=== PATIENT | female | born 1965 | race Caucasian/White ===

== ENCOUNTER 2017-03-15 12:04 | Inpatient (IN) | payer OTHER ==
[~2017-03-15] VITALS: Ht 162.6 cm; Wt 78.0 kg
[2017-03-15 13:14] LABS: BASOPHIL % 0.8 % (0-2); PLATELET COUNT 195 x10^3mcL (130-400); RED CELL DISTRIBUTION WIDTH 12.6 % (11.5-14.5)
[2017-03-15 13:23] LABS: CALCIUM 8.8 mg/dL (8.5-10.1); CARBON DIOXIDE 27.5 mmol/L (21-32); CHLORIDE SERUM 103 mmol/L (98-107); CREATININE SERUM 0.6 mg/dL (0.6-1.0); GFR1 > 60 mL/min; GLUCOSE SERUM 315 mg/dL (74-106); POTASSIUM SERUM 4.4 mmol/L (3.5-5.1); SODIUM SERUM 135 mmol/L (136-145)
[2017-03-15 13:27] LABS: ALBUMIN 3.5 g/dL (3.4-5.0); ALKALINE PHOSPHATASE 202 U/L (46-116); ALT/SGPT 476 U/L (14-59); AST/SGOT 155 U/L (15-37); BILIRUBIN TOTAL 1.72 mg/dL (0.20-1.00); LIPASE 471 IU/L (73-393); TOTAL PROTEIN, SERUM 6.7 g/dL (6.4-8.2)
[2017-03-15] MEDS ORDERED: GLU850 PO (15:15)
[2017-03-15 16:13] VITALS: BP 148/75
[2017-03-15 16:15] LABS: FREE T4 0.75 ng/dL (0.76-1.46); FREE THYROXINE INDEX 2.3 ug/dL (1.4-4.5); T3 TOTAL 0.8 ng/mL; T4(THYROXINE) 6.5 ug/dL (4.7-13.3)
[2017-03-15 18:37] LABS: microscopic required? YES; urine erythrocyte NEGATIVE (NEGATIVE)
[2017-03-15 18:51] LABS: AMPHETAMINE QUAL UR NONE DETECTED (NEG <=1000)
[2017-03-15 21:39] VITALS: BP 93/56
[2017-03-16 05:38] VITALS: BP 101/66
[2017-03-16 05:58] LABS: BASOPHIL % 0.6 % (0-2); PLATELET COUNT 185 x10^3mcL (130-400); RED CELL DISTRIBUTION WIDTH 12.9 % (11.5-14.5)
[2017-03-16 06:38] LABS: CALCIUM 8.7 mg/dL (8.5-10.1); CARBON DIOXIDE 26.8 mmol/L (21-32); CHLORIDE SERUM 110 mmol/L (98-107); CREATININE SERUM 0.6 mg/dL (0.6-1.0); GFR1 > 60 mL/min; GLUCOSE SERUM 181 mg/dL (74-106); MAGNESIUM 1.8 mg/dL (1.8-2.4); PHOSPHOROUS 4.6 mg/dL (2.5-4.9); POTASSIUM SERUM 4.5 mmol/L (3.5-5.1); SODIUM SERUM 145 mmol/L (136-145)
[2017-03-16 08:26] LABS: BILIRUBIN DIRECT 0.51 mg/dL (0.0-0.2); BILIRUBIN TOTAL 1.2 mg/dL (0.20-1.00)
[2017-03-16 08:27] LABS: ALBUMIN 3.1 g/dL (3.4-5.0); TOTAL PROTEIN, SERUM 5.6 g/dL (6.4-8.2)
[2017-03-16 09:40] VITALS: BP 107/60
[2017-03-16 12:05] VITALS: BP 126/70
[2017-03-16 17:08] VITALS: BP 111/61
[2017-03-16 19:53] VITALS: BP 140/66
[2017-03-16 22:14] VITALS: BP 113/62
[2017-03-17 06:12] LABS: BASOPHIL % 0.4 % (0-2); PLATELET COUNT 210 x10^3mcL (130-400); RED CELL DISTRIBUTION WIDTH 13.1 % (11.5-14.5)
[2017-03-17 06:25] VITALS: BP 100/55
[2017-03-17 06:27] LABS: CALCIUM 9.2 mg/dL (8.5-10.1); CARBON DIOXIDE 29.4 mmol/L (21-32); CHLORIDE SERUM 107 mmol/L (98-107); CREATININE SERUM 0.6 mg/dL (0.6-1.0); GFR1 > 60 mL/min; GLUCOSE SERUM 171 mg/dL (74-106); MAGNESIUM 1.9 mg/dL (1.8-2.4); PHOSPHOROUS 4.8 mg/dL (2.5-4.9); POTASSIUM SERUM 3.9 mmol/L (3.5-5.1); SODIUM SERUM 142 mmol/L (136-145)
[2017-03-17 11:50] VITALS: BP 123/71
[2017-03-17 18:05] VITALS: BP 91/67
[2017-03-17 21:35] VITALS: BP 100/56
[2017-03-18 06:23] LABS: BASOPHIL % 0.3 % (0-2); PLATELET COUNT 180 x10^3mcL (130-400); RED CELL DISTRIBUTION WIDTH 12.1 % (11.5-14.5)
[2017-03-18 06:30] LABS: CALCIUM 8.5 mg/dL (8.5-10.1); CARBON DIOXIDE 28.1 mmol/L (21-32); CHLORIDE SERUM 107 mmol/L (98-107); CREATININE SERUM 0.5 mg/dL (0.6-1.0); GFR1 > 60 mL/min; GLUCOSE SERUM 180 mg/dL (74-106); MAGNESIUM 1.8 mg/dL (1.8-2.4); PHOSPHOROUS 4.6 mg/dL (2.5-4.9); POTASSIUM SERUM 3.7 mmol/L (3.5-5.1); SODIUM SERUM 143 mmol/L (136-145)
[2017-03-18 10:25] VITALS: BP 103/60
[2017-03-18] MEDS ORDERED: GLU500 PO (12:14)
[2017-03-18] MEDS ORDERED: LAC PO (12:19)
[2017-03-18] MEDS ORDERED: AUG500 PO (12:19)
[2017-03-18] MEDS ORDERED: COL100 PO (12:24)
[2017-03-18] MEDS ORDERED: LEVEMIR100 U/M1 SC (12:27)
[2017-03-18] MEDS ORDERED: APAP/HYDROCODON1 T13 PO (12:28)
[2017-03-18] MEDS ORDERED: TEST STRIPS1 EACH MC (12:32)
[2017-03-18] MEDS ORDERED: INSULIN SYRING1 EA10 MC (12:39)
[2017-03-18] MEDS ORDERED: NEEDLES1 EAC1 MC (12:42)
[2017-03-18] MEDS ORDERED: BLOOD LANCETS1 EACH MC (12:48)
[2017-03-18 13:20] VITALS: BP 113/66
[2017-03-18 14:00] VITALS: BP 113/66
== END 2017-03-18 15:30 | disposition home or self-care (01) | DRG 263 ==
LOC: ED 12:04 → DU 15:37 → MU 15:37 → DU 16:28 → MU 03-17 12:31
PROVIDERS: Emergency Medicine; Family Medicine; Internal Medicine Gastroenterology; ADMIT Family Medicine
PROC: 0FT44ZZ Resection of Gallbladder, Percutaneous Endoscopic Approach (ICD-10-PCS; principal; 2017-03-16 10:00)
PROC: 0F798ZZ Dilation of Common Bile Duct, Via Natural or Artificial Opening Endoscopic (ICD-10-PCS; principal; 2017-03-16 10:00)
PROC: BF10YZZ Fluoroscopy of Bile Ducts using Other Contrast (ICD-10-PCS; 2017-03-16 10:00)
DX: K80.42 Calculus of bile duct with acute cholecystitis without obstruction (principal); D68.69 Other thrombophilia; E44.0 Moderate protein-calorie malnutrition; E87.1 Hypo-osmolality and hyponatremia; E11.65 Type 2 diabetes mellitus with hyperglycemia; N39.0 Urinary tract infection, site not specified; Z79.84 Long term (current) use of oral hypoglycemic drugs
CPT/HCPCS: 43262; 80307; 82962; 83880; 84439; 94150; C1769; J0696; J1815; J1885; J2175; J2250; J2270; J2405; J2765; J3010; J3490; J7030; J7120; Q0092; Q9967

== ENCOUNTER 2017-04-22 08:58 | Emergency (ER) | payer OTHER ==
[~2017-04-22] VITALS: Ht 162.6 cm; Wt 74.4 kg
[~2017-04-22 08:58] MED LIST: APAP/HYDROCODON1 T13 PO; AUG500 PO; BLOOD LANCETS1 EACH MC; COL100 PO; GLU500 PO; GLU850 PO; INSULIN SYRING1 EA10 MC; LAC PO; LEVEMIR100 U/M1 SC; NEEDLES1 EAC1 MC; TEST STRIPS1 EACH MC
[2017-04-22 09:13] VITALS: BP 120/62
== END 2017-04-22 10:16 | disposition home or self-care (01) ==
LOC: ED 08:58
DX: J20.9 Acute bronchitis, unspecified (principal); E11.9 Type 2 diabetes mellitus without complications
CPT/HCPCS: J7613; J7644; Q0092

== ENCOUNTER 2017-11-19 14:00 | Emergency (ER) | payer OTHER ==
[2017-11-19 14:57] VITALS: BP 128/76
== END 2017-11-19 18:08 | disposition home or self-care (01) ==
LOC: ED 14:00
DX: R05 Cough (principal); E11.9 Type 2 diabetes mellitus without complications

== ENCOUNTER 2019-11-26 07:49 | Emergency (ER) | payer OTHER ==
[~2019-11-26] VITALS: Ht 165.1 cm; Wt 77.6 kg
[2019-11-26 08:06] VITALS: Ht 165.1 cm; Wt 77.6 kg
[2019-11-26 08:21] LABS: BASOPHIL % 0.5 % (0-2); PLATELET COUNT 222 x10^3mcL (130-400); RED CELL DISTRIBUTION WIDTH 12.1 % (11.5-14.5)
[2019-11-26 08:34] LABS: CALCIUM 9.3 mg/dL (8.5-10.1); CARBON DIOXIDE 27.4 mmol/L (21-32); CHLORIDE SERUM 101 mmol/L (98-107); CREATININE SERUM 0.7 mg/dL (0.6-1.0); GFR1 > 60 mL/min; GLUCOSE SERUM 326 mg/dL (74-106); POTASSIUM SERUM 4.2 mmol/L (3.5-5.1); SODIUM SERUM 136 mmol/L (136-145)
[2019-11-26 08:40] LABS: ALBUMIN 3.8 g/dL (3.4-5.0); ALKALINE PHOSPHATASE 98 U/L (46-116); ALT/SGPT 30 U/L (14-59); AST/SGOT 11 U/L (15-37); BILIRUBIN TOTAL 0.6 mg/dL (0.20-1.00); TOTAL PROTEIN, SERUM 7.6 g/dL (6.4-8.2)
[2019-11-26 09:53] VITALS: BP 129/78
== END 2019-11-26 11:39 | disposition home or self-care (01) ==
LOC: ED 07:49
DX: N76.0 Acute vaginitis (principal); E11.9 Type 2 diabetes mellitus without complications; Z87.19 Personal history of other diseases of the digestive system
CPT/HCPCS: 36415

== ENCOUNTER 2020-07-31 09:04 | Emergency (ER) | payer OTHER ==
[~2020-07-31] VITALS: Ht 157.5 cm; Wt 118.8 kg
[2020-07-31 09:18] VITALS: Ht 157.5 cm; Wt 118.8 kg
[2020-07-31 11:06] LABS: CALCIUM 9.2 mg/dL (8.5-10.1); CARBON DIOXIDE 27.4 mmol/L (21-32); CHLORIDE SERUM 105 mmol/L (98-107); CREATININE SERUM 0.8 mg/dL (0.6-1.0); GFR1 > 60 mL/min; GLUCOSE SERUM 436 mg/dL (74-106); POTASSIUM SERUM 4.1 mmol/L (3.5-5.1); SODIUM SERUM 140 mmol/L (136-145)
[2020-07-31 11:11] LABS: ALBUMIN 3.8 g/dL (3.4-5.0); ALKALINE PHOSPHATASE 81 U/L (46-116); ALT/SGPT 29 U/L (14-59); AST/SGOT 16 U/L (15-37); BILIRUBIN TOTAL 0.9 mg/dL (0.20-1.00); TOTAL PROTEIN, SERUM 7.5 g/dL (6.4-8.2)
[2020-07-31 12:34] VITALS: BP 115/68
== END 2020-07-31 12:34 | disposition home or self-care (01) ==
LOC: ED 09:04
PROVIDERS: Emergency Medicine
DX: M54.30 Sciatica, unspecified side (principal); E11.65 Type 2 diabetes mellitus with hyperglycemia
CPT/HCPCS: 82962; J1885; J7030